=== PATIENT | male | born 1990 | race American Indian/Alaskan Native ===

== ENCOUNTER 2016-09-14 05:36 | Emergency (ER) | payer BC ==
--- NOTE | 2016-09-14 06:56 | Ultrasound Report ---
FINAL REPORT PROCEDURE: US TESTICULAR DOPPLER COMP TECHNIQUE: Real-time montanez-scale and color flow Doppler sonography in multiple planes of the scrotum, testicles, and epididymes was performed. Velocity spectral waveform analysis Doppler imaging of the arterial inflow and venous outflow of the testicles was performed with image documentation. CPT 80258 and 19875 HISTORY: RIGHT TESTICULAR PAIN COMPARISON: No prior studies are available for comparison. FINDINGS: RIGHT TESTICLE: Size: 4.7 x 2.4 x 2.9 cm . Appearance: Normal size and echotexture . Arterial blood flow: Normal spectral waveforms, flow velocities and color flow images.. Venous blood flow: Normal spectral waveforms and color flow images. Right epididymis: Normal size and echotexture . Hydrocele: None . LEFT TESTICLE Size: 4.3 x 2.2 x 2.9 cm . Appearance: Normal size and echotexture . Arterial blood flow: Normal spectral waveforms, flow velocities and color flow images.. Venous blood flow: Normal spectral waveforms and color flow images. Leftepididymis: There is a left epididymal head cyst measuring 4 x 3 x 5 millimeters. Hydrocele: Slight varicocele.. IMPRESSION: Both testicles have a normal size with appropriate blood flow. Slight left varicocele.
[2016-09-14 07:57] VITALS: BP 141/94
[2016-09-14] MEDS ORDERED: XYLOCAINE 1% MPF 5 mL INFILTRATI ONE (08:30)
[2016-09-14] MEDS ORDERED: ROCEPHIN IM ONE (08:30)
[2016-09-14] MEDS ORDERED: ZITHROMAX PO ONE (08:30)
--- NOTE | 2016-09-14 08:32 | Emergency Department Report ---
ED Male HPI - General Chief complaint: Urogenital-Male Stated complaint: LT TESTICLE PAIN Time Seen by Provider: 09/14/16 08:16 Source: patient Mode of arrival: Ambulatory Limitations: No Limitations - History of Present Illness Initial comments: PT c/o L testicular pain x 1 week. PT states that his brother had a hx of testicular torsion. PT states that he is sexual active and he usually uses a "rubber". PT admits to receiving recent oral sex without protection. PT is afraid he may have contracted an STD. PT denies hx of STD. MD Complaint: testicle pain Onset/Timin -: Gradual, week(s) Location: left testicle Severity scale (0 -10): 9 Quality: sharp Consistency: constant Improves with: none Worsens with: urination new sexual partner dysuria. denies: discharge, blood in urine, fever, nausea/vomiting - Related Data Sexually active: Yes Allergies Allergy/AdvReac Type Severity Reaction Status Date / Time No Known Allergies Allergy Verified 09/14/16 05:44 ED Review of Systems ROS: Stated complaint: LT TESTICLE PAIN Other details as noted in HPI Comment: All other systems reviewed and negative Constitutional: denies: chills, fever Gastrointestinal: denies: abdominal pain, nausea, vomiting Genitourinary: dysuria, testicular pain. denies: frequency, discharge, testicular mass Musculoskeletal: denies: back pain ED Past Medical Hx - Past Medical History Previous Medical History?: No - Surgical History Past Surgical History?: No - Social History Smoking Status: Current Every Day Smoker Substance Use Type: Marijuana ED Physical Exam - General Limitations: No Limitations General appearance: alert, in no apparent distress - Head Head exam: Present: atraumatic, normocephalic, normal inspection - Eye Eye exam: Present: normal appearance, PERRL, EOMI. Absent: conjunctival injection - ENT ENT exam: Present: normal exam, normal orophraynx, mucous membranes moist, normal external ear exam - Neck Neck exam: Present: normal inspection. Absent: tenderness - Respiratory Respiratory exam: Present: normal lung sounds bilaterally. Absent: respiratory distress, wheezes - Cardiovascular Cardiovascular Exam: Present: regular rate, normal rhythm - GI/Abdominal GI/Abdominal exam: Present: soft. Absent: tenderness - exam: Present: normal inspection, testicular tenderness (L ), other ( hand crown pouncer at bedside, + L inguinal canal lymphadenopathy ). Absent: scrotal swelling External exam: Absent: lesions - Extremities Exam Extremities exam: Present: normal inspection, full ROM - Back Exam Back exam: Present: normal inspection, full ROM. Absent: tenderness, CVA tenderness (R), CVA tenderness (L) - Neurological Exam Neurological exam: Present: alert, oriented X3 - Psychiatric Psychiatric exam: Present: normal affect, normal mood - Skin Skin exam: Present: warm, dry, intact, normal color ED Course Vital Signs 09/14/16 09/14/16 05:44 07:55 Temperature 98.7 F 98.5 F Pulse Rate 69 51 L Respiratory 20 16 Rate Blood Pressure 144/94 141/94 O2 Sat by Pulse 100 100 Oximetry - Reevaluation(s) Reevaluation #1: 09/14/16 08:32 PT aware of plan of care. No questions at this time. PT aware he will need to follow up with full panel STD testing. PT aware he will need to abstain from sex for the next 7 days. PT advised to always use a barrier method. PT has no questions at this time. - Pulse Oximetry Interpretation Digit-Finger Initial Pulse Oximetry Readin Actions Taken: none ED Medical Decision Making - Radiology Data Radiology results: report reviewed US - normal flow, L slight vericocele - Differential Diagnosis torsion, std, epididmytis, Critical Care Time: No Critical care attestation.: If time is entered above; I have spent that time in minutes in the direct care of this critically ill patient, excluding procedure time. ED Disposition Clinical Impression: Varicocele present on ultrasound of scrotum, Risky sexual behavior, Testicle pain Disposition: TO HOME OR SELFCARE Is pt being admited?: No Does the pt Need Aspirin: No Condition: Stable Instructions: Sexually Transmitted Diseases (ED), Varicocele (ED), Testicle Pain (ED) Additional Instructions: Follow up with PCP for bp recheck in 3-5 days No sex x 7 days Follow up for full panel STD testing Referrals: AMOS CLIFTON MD [Primary Care Provider] - 3-5 Days ALDO VILLALPANDO MD [Staff Physician] - 3-5 Days [facility] [Outside] - 3-5 Days Forms: Work/School Release Form(ED) Time of Disposition: 09:34
[2016-09-14 09:00] LABS: Bilirubin,Urine NEG (Negative); Blood,Urine NEG (Negative); Ketones,Urine NEG (Negative); Leukocyte Esterase,Urine NEG (Negative); Mucus,Urine FEW /HPF; Nitrite,Urine NEG (Negative); Protein,Urine <15 mg/dL mg/dL (Negative)
== END 2016-09-14 10:26 | disposition home or self-care (01) ==
LOC: ED 05:36
DX: I86.1 Scrotal varices (principal); N50.812 Left testicular pain; F17.200 Nicotine dependence, unspecified, uncomplicated; F12.10 Cannabis abuse, uncomplicated
CPT/HCPCS: 81001; 87591; 93975; 96372; 99284; J0696